=== PATIENT | female | born 1980 | race Caucasian/White ===

== ENCOUNTER → 2021-10-05 | Outpatient (CLI) | payer OTHER ==
[~2021-10-05] MED LIST: CELEXA20 MG PO; PROBIOTIC1 EAC1 PO; ZYRTEC10 MG PO
== END ==
LOC: EXRD 11:19
DX: M54.50 Low back pain, unspecified (principal); G89.29 Other chronic pain; R05.9 Cough, unspecified; M48.061 Spinal stenosis, lumbar region without neurogenic claudication
CPT/HCPCS: 71046; 72100

== ENCOUNTER → 2021-10-10 | Outpatient (CLI) | payer OTHER ==
[~2021-10-10] MED LIST changes: +ALKA-SELTZER H1 EAC1 PO; +DICYCLOMINE HCL10 MG PO; +FAMOTIDINE40 MG PO; +FLONASE 0.05% N16 GM; +IBU600 MG PO; +LEVOCETIRIZINE D5 MG PO; +MIRTAZAPINE15 MG PO; +NAPROXEN250 MG PO; +PRIMROSE OIL PO
== END ==
LOC: KOH-I 09:49
DX: R10.84 Generalized abdominal pain (principal); G89.29 Other chronic pain; R13.10 Dysphagia, unspecified
CPT/HCPCS: 76705

== ENCOUNTER 2021-10-11 09:29 | Inpatient (IN) | payer OTHER ==
[~2021-10-11] VITALS: Ht 160 cm; Wt 68.5 kg
[~2021-10-11 09:29] MED LIST changes: -ALKA-SELTZER H1 EAC1 PO; -DICYCLOMINE HCL10 MG PO; -FAMOTIDINE40 MG PO; -FLONASE 0.05% N16 GM; -IBU600 MG PO; -LEVOCETIRIZINE D5 MG PO; -MIRTAZAPINE15 MG PO; -NAPROXEN250 MG PO; -PRIMROSE OIL PO
[2021-10-11 12:47] LABS: HEMOGLOBIN 14.5 gm/dl (12.3-15.3); RED BLOOD COUNT 4.69 M/UL (4.00-5.10); WHITE BLOOD COUNT 21.3 K/UL (4.5-11.0)
[2021-10-11 13:04] LABS: BUN/CREATININE RATIO 17 (0-10)
[2021-10-11] MEDS ORDERED: DICYCLOMINE HCL10 MG PO (16:06)
[2021-10-11] MEDS ORDERED: LEVOCETIRIZINE D5 MG PO (16:07)
[2021-10-11] MEDS ORDERED: FAMOTIDINE40 MG PO (16:07)
[2021-10-11] MEDS ORDERED: FLONASE 0.05% N16 GM (16:07)
[2021-10-11] MEDS ORDERED: MIRTAZAPINE15 MG PO (16:08)
[2021-10-11] MEDS ORDERED: ALKA-SELTZER H1 EAC1 PO (16:09)
[2021-10-11] MEDS ORDERED: IBU600 MG PO (16:11)
[2021-10-11] MEDS ORDERED: PRIMROSE OIL PO (16:11)
[2021-10-11] MEDS ORDERED: NAPROXEN250 MG PO (16:12)
[2021-10-14] MEDS ORDERED: AUGMENTIN 500-500 MG PO (09:43)
== END 2021-10-14 12:18 | disposition home or self-care (01) | DRG 853 ==
LOC: ER1 09:29 → CDU 15:22 → MED SURG 4 19:25
PROVIDERS: Physician Assistant Medical; ADMIT Surgery
PROC: 0DTJ4ZZ Resection of Appendix, Percutaneous Endoscopic Approach (ICD-10-PCS; principal; 2021-10-11 17:29)
DX: A41.9 Sepsis, unspecified organism (principal); K35.32 Acute appendicitis with perforation, localized peritonitis, and gangrene, without abscess; K58.9 Irritable bowel syndrome, unspecified; Z20.822 Contact with and (suspected) exposure to COVID-19; J44.9 Chronic obstructive pulmonary disease, unspecified; F41.9 Anxiety disorder, unspecified; F32.A Depression, unspecified; F17.210 Nicotine dependence, cigarettes, uncomplicated; N83.209 Unspecified ovarian cyst, unspecified side; Z87.19 Personal history of other diseases of the digestive system; Z98.891 History of uterine scar from previous surgery; Z98.51 Tubal ligation status; Z88.6 Allergy status to analgesic agent; Z71.6 Tobacco abuse counseling
CPT/HCPCS: 80053; 81001; 83605; 85025; 87040; 93005; 96365; 96375; 96376; 99285; J1100; J1170; J2001; J2250; J2405; J2543; J2704; J3010; J7030; Q9967; U0002

== ENCOUNTER → 2021-11-02 | Outpatient (CLI) | payer OTHER ==
[~2021-11-02] MED LIST changes: +ALKA-SELTZER H1 EAC1 PO; +AUGMENTIN 500-500 MG PO; +DICYCLOMINE HCL10 MG PO; +FAMOTIDINE40 MG PO; +FLONASE 0.05% N16 GM; +IBU600 MG PO; +LEVOCETIRIZINE D5 MG PO; +MIRTAZAPINE15 MG PO; +NAPROXEN250 MG PO; +PRIMROSE OIL PO
== END ==
LOC: EXRD 15:04
DX: R07.9 Chest pain, unspecified (principal)
CPT/HCPCS: 71046

== ENCOUNTER 2021-11-16 02:23 | Emergency (ER) | payer OTHER | END 2021-11-16 04:45 | disposition home or self-care (01) | LOC: ER1 02:23 | DX: K08.89 Other specified disorders of teeth and supporting structures (principal); F41.9 Anxiety disorder, unspecified; Z88.5 Allergy status to narcotic agent | CPT/HCPCS: 99282 ==

== ENCOUNTER → 2021-12-01 | Outpatient (CLI) | payer OTHER | LOC: MAMO 13:11 | DX: R92.8 Other abnormal and inconclusive findings on diagnostic imaging of breast (principal) | CPT/HCPCS: 76641-LT; 77065; G0279 ==

== ENCOUNTER → 2022-01-11 | Day surgery (SDC) | payer OTHER ==
[~2022-01-11] MED LIST changes: +BLACK COHOSH200 MG PO; +GINGER250 MG PO; +NORFLEX 100 MG100 MG PO; +SEROQUEL25 MG PO
== END | disposition home or self-care (01) ==
LOC: OR 07:33
DX: K64.8 Other hemorrhoids (principal); K57.30 Diverticulosis of large intestine without perforation or abscess without bleeding; R13.14 Dysphagia, pharyngoesophageal phase; K21.9 Gastro-esophageal reflux disease without esophagitis; E66.3 Overweight; Z72.0 Tobacco use; Z68.26 Body mass index [BMI] 26.0-26.9, adult; Z79.899 Other long term (current) drug therapy; Z20.822 Contact with and (suspected) exposure to COVID-19
CPT/HCPCS: J2704; J7040

== ENCOUNTER → 2022-02-21 | Day surgery (SDC) | payer OTHER ==
[~2022-02-21] MED LIST changes: +B COMPLEX-FOLI1 EACH INJ; +IBUPROFEN IB200 MG PO; +KLONOPIN TAB 00.5 MG PO; +PROTONIX40 MG PO; +VAZALORE81 MG PO; +WELLBUTRIN SR150 M1 PO
== END | disposition home or self-care (01) ==
LOC: OR 08:26
DX: K29.50 Unspecified chronic gastritis without bleeding (principal); K21.00 Gastro-esophageal reflux disease with esophagitis, without bleeding; K31.9 Disease of stomach and duodenum, unspecified; K29.80 Duodenitis without bleeding; K57.30 Diverticulosis of large intestine without perforation or abscess without bleeding; Z88.5 Allergy status to narcotic agent; Z79.82 Long term (current) use of aspirin; Z79.899 Other long term (current) drug therapy
CPT/HCPCS: J2704; J7040